=== PATIENT | male | born 1975 | race Asian ===

== ENCOUNTER 2021-02-09 14:10 | Outpatient (CLI) | payer SELFPAY ==
[2021-02-09 16:26] LABS: Bilirubin Neg (Negative); Blood, Urine 25 (Negative); Clarity Clear (Clear); Glucose, Urine (Dipstick) Normal (Negative); Ketone, Urine Negative (Negative); Leukocyte Negative (Negative); Nitrite Negative (Negative); Protein, Urine (Dipstick) Negative (Neg-Trace); Specific Gravity, Urine 1.005 (1.002-1.036); Urobilinogen Normal mg/dL (Less than 2)
[2021-02-09 16:27] LABS: Hemoglobin 15.2 g/dL (13.5-17.5); Mean Corpuscular HGB CONC 33.9 g/dL (32.0-36.0); Mean Corpuscular Hemoglobin 28.6 pg (27.0-33.0); Mean Corpuscular Volume 84.4 fl (81.2-95.1); Mean Platelet Volume 9.3 fl (7.4-10.4); Platelet Count 293 10x3/uL (150-450); RBC Distribution Width 12.4 % (11.5-14.5); Red Blood Cell (RBC) Count 5.31 10x6/uL (4.32-5.72); White Blood Cell (WBC) Count 7.4 10x3/uL (3.5-10.5)
[2021-02-09 16:36] LABS: Bacteria/HPF None Seen HPF (None Seen); RBC/HPF 0-3 HPF (0-3); Squamous Epithelial 0-3 HPF (0-3); WBC/HPF 0-3 HPF (0-3)
[2021-02-09 16:49] LABS: Anion Gap 15 mmol/L (10-20); BUN (Urea Nitrogen) 10 mg/dL (8.9-20.6); Calc. Creatinine Clearance 0 mL/min (70-130); Calcium 9.4 mg/dL (7.8-10.44); Carbon Dioxide 24 mmol/L (22-29); Chloride 104 mmol/L (98-107); Glucose 96 mg/dL (70-105); Potassium 3.8 mmol/L (3.5-5.1); Sodium 139 mmol/L (136-145)
[2021-02-09 16:53] LABS: PTT 26.8 sec (22.0-33.0); Prothrombin Time 10.6 sec (9.5-12.1)
[2021-02-10 12:14] LABS: SARS-CoV-2 PCR by NAA Not Detected (NotDetected)
== END 2021-02-09 14:11 | disposition home or self-care (01) ==
LOC: LABBT 14:10
PROVIDERS: ATTEND Urology
DX: Z01.818 Encounter for other preprocedural examination (principal); Z20.822 Contact with and (suspected) exposure to COVID-19
CPT/HCPCS: 80048; 81001; 85027; 85610; 85730; 87086; 93005; 93010; U0003; U0005

== ENCOUNTER 2021-02-11 08:34 | Day surgery (SDC) | payer OTHER, SELFPAY ==
[2021-02-09 11:19] VITALS: BMI 25.0
[2021-02-11] MEDS ORDERED: Levofloxacin 500 mg/D5W 100 ml Premix Bag ONE (09:01)
[2021-02-11] MEDS ORDERED: Fentanyl 100 MCG/2 ML VIAL ONE ×2 (10:09→12:15)
[2021-02-11] MEDS ORDERED: B & O ONE (10:34)
[2021-02-11] MEDS ORDERED: Ondansetron PF 4 MG/2 ML Vial ONE (10:36)
[2021-02-11] MEDS ORDERED: Lidocaine 1% PF 5 ML VIAL ONE (10:36)
[2021-02-11] MEDS ORDERED: Dexamethasone 20 MG/5 ML VIAL ONE (10:36)
[2021-02-11] MEDS ORDERED: PROPOFOL 200 MG/20 ML VIAL ONE (10:36)
[2021-02-11] MEDS ORDERED: Meperidine HCl/PF 25 MG/ML VIAL ONE (11:57)
[2021-02-11] MEDS ORDERED: Phenazopyridine HCl 100 MG TAB ONE (12:08)
[2021-02-11] MEDS ORDERED: Oxybutynin 5 MG TAB ONE (12:09)
[2021-02-11] MEDS ORDERED: HYDROcodone/Acetaminophen 5/325 mg Tablet ONE (13:38)
== END 2021-02-11 14:46 | disposition home or self-care (01) ==
LOC: SDC 08:34
PROVIDERS: ATTEND Urology
PROC: 0VT08ZZ Resection of Prostate, Via Natural or Artificial Opening Endoscopic (ICD-10-PCS; principal; 2021-02-11)
DX: N40.1 Benign prostatic hyperplasia with lower urinary tract symptoms (principal); N13.8 Other obstructive and reflux uropathy; N35.812 Other bulbous urethral stricture, male
CPT/HCPCS: J1100; J1956; J2175; J2405; J2704; J3010